=== PATIENT | female | born 1970 | race American Indian/Alaskan Native ===

== ENCOUNTER 2019-12-29 15:04 | Emergency (ER) | payer MEDICARE ==
--- NOTE | 2019-12-29 16:37 | Event Note ---
ED Screening Note Date of service: 12/29/19 Time: 16:33 ED Screening Note: 49-year-old -[place] female presents to the emergency room for a marble sized vaginal lump that she noticed yesterday and today she stated that it had burst. Patient denies any pain or discharge. She had a negative golden test 1 month ago. She is currently undetectable with HIV history of asthma. She denies any fever or chills but complains of dizziness and feels that infection may have gone through her body. All vital signs are stable. This initial assessment/diagnostic orders/clinical plan/treatment(s) is/are subject to change based on patients health status, clinical progression and re-assessment by fellow clinical providers in the ED. Further treatment and workup at subsequent clinical providers discretion. Patient/guardian urged not to elope from the ED as their condition may be serious if not clinically assessed and managed. Initial orders include:
[2019-12-29 16:59] LABS: Bacteria,Urine 1+ /HPF (Negative); Bilirubin,Urine NEG (Negative); Blood,Urine NEG (Negative); Color,Urine Yellow (Yellow); Mucus,Urine FEW /HPF; Protein,Urine <15 mg/dL mg/dL (Negative)
[2019-12-29 17:05] LABS: HCG Qualitative,Urine Negative (Negative)
--- NOTE | 2019-12-29 20:26 | Emergency Department Report ---
ED Female HPI - General Chief complaint: Urogenital-Female Stated complaint: KNOT ON PENIS Source: patient Mode of arrival: Ambulatory Limitations: No Limitations - History of Present Illness Initial comments: Patient is a 49-year-old -[place] female with a history of HIV and asthma who presents to the ED with complaint of acute onset vaginal mass with no pain, itching or discharge for last 24 hours. Patient states that she was in the bathroom when she noticed a protrusion from her vagina and which has continued persistently. Patient states that she is currently not sexually active and has not been for over a year. Patient denies vaginal pain, dysuria, urinary frequency and urgency, vaginal discharge, fever, chills, abdominal pain, vaginal bleeding or low back pain and traumatic injury. P Complaint: other (vaginal painless mass) -: Sudden, hour(s) (24) Location: other (vaginal) Radiation: non-radiating Severity: mild Severity scale (0 -10): 0 Quality: dull Consistency: constant Improves with: none Worsens with: none Are you Now?: No Associated Symptoms: denies other symptoms, other (Vaginal mass). denies: vaginal discharge, vaginal bleeding, abdominal pain, nausea/vomiting, fever/chills, headaches, loss of appetite, dysuria, hematuria, rash, seizure, shortness of breath, syncope - Related Data Sexually active: No Previous Rx's Medication Instructions Recorded Last Taken Type Carbamide Peroxide 6.5% [Ear Wax 3 - 5 drops OT TID #15 ml 12/29/19 Unknown Rx Drops] Allergies Allergy/AdvReac Type Severity Reaction Status Date / Time No Known Allergies Allergy Unverified 12/29/19 16:11 ED Review of Systems ROS: Stated complaint: KNOT ON PENIS Other details as noted in HPI Constitutional: denies: chills, fever Eyes: denies: eye pain, eye discharge, vision change ENT: denies: ear pain, throat pain Respiratory: denies: cough, shortness of breath, wheezing Cardiovascular: denies: chest pain, palpitations Endocrine: no symptoms reported Gastrointestinal: denies: abdominal pain, nausea, diarrhea Genitourinary: other (vaginal mass). denies: urgency, dysuria, frequency, h ematuria, discharge, abnormal menses, dyspareunia Musculoskeletal: denies: back pain, joint swelling, arthralgia Skin: denies: rash, lesions Neurological: denies: headache, weakness, paresthesias Psychiatric: denies: anxiety, depression Hematological/Lymphatic: denies: easy bleeding, easy bruising ED Past Medical Hx - Past Medical History Previous Medical History?: Yes Hx Asthma: Yes Hx HIV: Yes (undetected) - Surgical History Past Surgical History?: No - Social History Smoking Status: Current Every Day Smoker Substance Use Type: None - Medications Home Medications: Home Medications Medication Instructions Recorded Confirmed Last Taken Type Carbamide Peroxide 6.5% [Ear Wax 3 - 5 drops OT TID #15 ml 12/29/19 Unknown Rx Drops] ED Physical Exam - General Limitations: No Limitations General appearance: alert, in no apparent distress - Head Head exam: Present: atraumatic, normocephalic, normal inspection - Eye Eye exam: Present: normal appearance, PERRL, EOMI Pupils: Present: normal accommodation - ENT ENT exam: Present: normal exam, normal orophraynx, mucous membranes moist, TM's normal bilaterally, normal external ear exam - Neck Neck exam: Present: normal inspection, full ROM - Respiratory Respiratory exam: Present: normal lung sounds bilaterally. Absent: respiratory distress, wheezes, rales, chest wall tenderness, accessory muscle use, decreased breath sounds - Cardiovascular Cardiovascular Exam: Present: regular rate, normal rhythm, normal heart sounds. Absent: systolic murmur, diastolic murmur, rubs, gallop - GI/Abdominal GI/Abdominal exam: Present: soft, normal bowel sounds. Absent: distended, tenderness, guarding, rigid, hyperactive bowel sounds, hypoactive bowel sounds, organomegaly - External exam: Present: normal external exam Speculum exam: Present: normal speculum exam, other (visible prolapsed bladder wall) Bi-manual exam: Present: normal bi-manual exam. Absent: other (Female RN Ms. Pringle present during the pelvic exam) - Extremities Exam Extremities exam: Present: normal inspection, full ROM, normal capillary refill - Back Exam Back exam: Present: normal inspection, full ROM. Absent: tenderness, CVA tenderness (R), CVA tenderness (L), muscle spasm, paraspinal tenderness, vertebral tenderness - Neurological Exam Neurological exam: Present: alert, oriented X3, CN II-XII intact, normal gait, reflexes normal - Psychiatric Psychiatric exam: Present: normal affect, normal mood - Skin Skin exam: Present: warm, dry, intact, normal color. Absent: rash ED Course Vital Signs 12/29/19 16:12 Temperature 98.2 F Pulse Rate 81 Respiratory 20 Rate Blood Pressure 116/85 O2 Sat by Pulse 99 Oximetry ED Medical Decision Making - Medical Decision Making This is a 49-year-old -[place] female with a history of HIV and asthma who presents to the ED with complaint of acute onset vaginal mass with no pain, itching or discharge for last 24 hours. Patient states that she was in the bathroom when she noticed a protrusion from her vagina and which has continued persistently. Patient states that she is currently not sexually active and has not been for over a year. In the ED, patient is alert and oriented x3 and is not in distress. urinalysis is unremarkable. Pelvic exam revealed nontender moderate pelvic wall prolapse through the vaginal introitus with no bleeding or vaginal discharge. This finding was explained to the patient in detail as to possible causes of the prolapse and the treatment plan. Patient was given a referral to the [facility] physician [employer] Dr. Chary Carvajal for follow-up regarding her pelvic organ prolapse. Patient was otherwise advised return to the ED immediately if symptoms get worse. - Differential Diagnosis Vaginal prolaple; Neoplasm; Vaginal Abscess; STD(Syphilis) Critical care attestation.: If time is entered above; I have spent that time in minutes in the direct care of this critically ill patient, excluding procedure time. ED Disposition Clinical Impression: Female bladder prolapse, Impacted cerumen of both ears Disposition: DC-01 TO HOME OR SELFCARE Is pt being admited?: No Does the pt Need Aspirin: No Condition: Stable Instructions: Earwax Buildup, Adult, Ear Drops, Adult, [id number], Pelvic Organ Prolapse, Kegel Exercises Additional Instructions: Apply the medication to the affected ears as advised, follow-up with [place] [facility] physician Dr. Carvajal for further evaluation of the prolapse. Return to the ED immediately if symptoms get worse. Prescriptions: Carbamide Peroxide 6.5% [Ear Wax Drops] 3 - 5 drops OT TID #15 ml Referrals: CHARY CARVAJAL MD [Staff Physician] - 3-5 Days Time of Disposition: 20:33 Print Language: SCOTTISH
[2019-12-29 20:46] VITALS: BP 120/82
== END 2019-12-29 20:46 | disposition home or self-care (01) ==
LOC: ED 15:04
DX: N81.10 Cystocele, unspecified (principal); H61.23 Impacted cerumen, bilateral; Z79.899 Other long term (current) drug therapy; J45.909 Unspecified asthma, uncomplicated; Z21 Asymptomatic human immunodeficiency virus [HIV] infection status; F17.200 Nicotine dependence, unspecified, uncomplicated
CPT/HCPCS: 81001; 81025; 99283